=== PATIENT | female | born 1970 | race Caucasian/White ===

== ENCOUNTER 2025-03-29 11:55 | Emergency (ER) | payer OTHER ==
[2025-03-29] MEDS ORDERED: Sodium Chloride 0.9% 2.5 ML Syringe FLUSH PRN (12:27)
[2025-03-29] MEDS ORDERED: Sodium Chloride 0.9% 10 ML Syringe FLUSH PRN (12:27)
[2025-03-29 13:04] LABS: BASOPHILS ABSOLUTE AUTO 0.03 K/uL (0.00-0.20); BASOPHILS PERCENT AUTO 0.5 % (0.0-1.0); EOSINOPHILS ABSOLUTE AUTO 0.12 K/uL (0.00-0.45); EOSINOPHILS PERCENT AUTO 2.1 % (0.0-6.0); IMMATURE GRAN ABSOLUTE AUTO 0.01 K/uL (0.00-0.05); IMMATURE GRAN PERCENT AUTO 0.2 % (0.0-0.4); LYMPHOCYTES ABSOLUTE AUTO 2.04 K/uL (1.00-4.80); LYMPHOCYTES PERCENT AUTO 35.3 % (24.0-44.0); MEAN PLATELET VOLUME 9.5 fL (9.4-12.3); MONOCYTES ABSOLUTE AUTO 0.31 K/uL (0.00-0.80); MONOCYTES PERCENT AUTO 5.4 % (0.0-8.0); NEUTROPHILS ABSOLUTE AUTO 3.27 K/uL (1.80-7.70); NEUTROPHILS PERCENT AUTO 56.5 % (41.0-71.0); NRBC ABSOLUTE 0.00 K/uL (0.00-0.02); NRBC PERCENT 0.0 /100WBC (0.0-0.2); PLATELET COUNT,PLT 274 K/uL (150-400); RED BLOOD CELL COUNT 4.87 M/uL (4.10-5.30); WHITE BLOOD CELL COUNT,WBC 5.78 K/uL (3.9-11.3)
[2025-03-29 13:11] LABS: APPEARANCE,URINE CLEAR; GLUCOSE,URINE NEGATIVE (NEGATIVE); OCCULT BLOOD,URINE TRACE-INTACT (NEGATIVE)
[2025-03-29 13:30] LABS: EPITHELIAL CELLS,URINE OCCASIONAL (NONE-FEW)
[2025-03-29 13:56] LABS: LACTIC ACID 2.3 mmol/L (0.4-2.0)
[2025-03-29 15:06] LABS: A/G RATIO 1.1 (0.9-1.6); ALANINE AMINOTRANSFERASE,ALT 27 IU/L (14-63); ASPARTATE AMNIOTRANSFERASE,AST 25 IU/L (15-37); BILIRUBIN TOTAL 0.5 mg/dL (0.2-1.0); BLOOD UREA NITROGEN,BUN 16 mg/dL (7.0-18.0); CARBON DIOXIDE,CO2 21.6 mmol/L (21.0-32.0); CHLORIDE,CL 100 mmol/L (98-107); CREATININE 0.9 mg/dL (0.6-1.0); EST CRCL DRUG DOSING (CG) 73.76 mL/min; GLUCOSE RANDOM 142 mg/dL (74-106); POTASSIUM,K 4.0 mmol/L (3.5-5.1); PRO B-TYPE NATRIUR PEPT,BNPPRO 52 pg/mL (0-125); PROTEIN TOTAL,TP 7.3 g/dL (6.4-8.2); SODIUM,NA 135 mmol/L (136-145); TSH ULTRASENSITIVE 2.03 uIU/mL (0.36-3.74)
[2025-03-29 15:07] LABS: ESTIMATED GFR 77 mL/min (>60)
== END 2025-03-29 18:05 | disposition home or self-care (01) ==
LOC: MW.ED 11:55
DX: R42 Dizziness and giddiness (principal); N39.0 Urinary tract infection, site not specified; E03.9 Hypothyroidism, unspecified; Z79.890 Hormone replacement therapy
CPT/HCPCS: 36415; 71046; 80053; 81001; 82550; 82947; 83605; 83690; 83735; 83880; 84443; 84484; 85025; 85379; 87040; 87086; 93005; 96360; 99285; J7030; 93010; 99284